=== PATIENT | male | born 1985 | race Caucasian/White ===

== ENCOUNTER 2018-06-05 01:59 | Emergency (ER) | payer BC ==
[2018-06-05] MEDS ORDERED: Pantoprazole 40 MG Vial IVPUSH ONE (02:10)
[2018-06-05] MEDS ORDERED: Sodium Chloride 0.9% 1,000 ML IV ONE (02:10)
[2018-06-05] MEDS ORDERED: Ondansetron 4 MG/2 ML SDV IVPUSH ONE (02:10)
--- NOTE | 2018-06-05 02:11 | EDM.PDOC ---
ED HPI GENERAL MEDICAL PROBLEM - General Chief Complaint: Abdominal Pain Stated Complaint: ABDOMINAL PAIN- GERDS AND IBS Time Seen by Provider: 06/05/18 02:11 Source of Information: Reports: Patient - History of Present Illness INITIAL COMMENTS - FREE TEXT/NARRATIVE: HISTORY AND PHYSICAL: History of present illness: [Patient with history of irritable bowel syndrome as well as GERD presents with vague abdominal pain nonfocal no fever nausea vomiting chills sweats no chest pain shortness breath headache dizziness palpitation no bowel or urine symptoms Patient did have some nausea intermittently throughout the day did provide a Bentyl which has relieved symptoms ] Review of systems: As per history of present illness and below otherwise all systems reviewed and negative. Past medical history: As per history of present illness and as reviewed below otherwise noncontributory. Surgical history: As per history of present illness and as reviewed below otherwise noncontributory. Social history: No reported history of drug or alcohol abuse. Family history: As per history of present illness and as reviewed below otherwise noncontributory. Physical exam: HEENT: Atraumatic, normocephalic, pupils reactive, negative for conjunctival pallor or scleral icterus, mucous membranes moist, throat clear, neck supple, nontender, trachea midline. Lungs: Clear to auscultation, breath sounds equal bilaterally, chest nontender. Heart: S1S2, regular, negative for clicks, rubs, or JVD. Abdomen: Soft, nondistended, nontender. Negative for masses or hepatosplenomegaly. Negative for costovertebral tenderness. Pelvis: Stable nontender. Genitourinary: Deferred. Rectal: Deferred. Extremities: Atraumatic, negative for cords or calf pain. Neurovascular unremarkable. Neuro: Awake, alert, oriented. Cranial nerves II through XII unremarkable. Cerebellum unremarkable. Motor and sensory unremarkable throughout. Exam nonfocal. Diagnostics: [EBC CMP lipase UA Flat and upright plain films ] Therapeutics: [Eater normal saline bolus Zofran 8 mg IV Proton X 80 mg IV Bentyl 10 mg by mouth ] Impression: [ abdominal pain -resolved] Definitive disposition and diagnosis as appropriate pending reevaluation and review of above. abdominal Pain Score (Numeric/FACES): 9 - Related Data Allergies Allergy/AdvReac Type Severity Reaction Status Date / Time No Known Allergies Allergy Verified 06/05/18 02:12 Home Meds: Home Meds Cyclobenzaprine [Flexeril] 5 mg PO ASDIRECTED PRN 06/05/18 [History] FLUoxetine [PROzac] 10 mg PO DAILY 06/05/18 [History] Gabapentin [Neurontin] 100 mg PO TID 06/05/18 [History] ED ROS GENERAL - Review of Systems Review Of Systems: See Below ED EXAM, GENERAL - Physical Exam Exam: See Below Course - Vital Signs Last Recorded V/S: Last Vital Signs Temp 97.5 F 06/05/18 02:08 Pulse 58 L 06/05/18 02:08 Resp 18 06/05/18 02:08 BP 119/72 06/05/18 02:08 Pulse Ox 95 06/05/18 02:08 - Orders/Labs/Meds Orders: Active Orders 24 hr Category Date Time Status Abdomen 2V AP Flat Upright [CR] Stat Exams 06/05/18 02:50 Taken UA W/MICROSCOPIC [URIN] Stat Lab 06/05/18 02:10 Ordered Labs: Laboratory Tests 06/05/18 06/05/18 06/05/18 Range/Units 02:10 02:25 02:25 WBC 8.74 (4.0-11.0) K/uL RBC 4.93 (4.50-5.90) M/uL Hgb 14.8 (13.0-17.0) g/dL Hct 42.1 (38.0-50.0) % MCV 85.4 (80.0-98.0) fL MCH 30.0 (27.0-32.0) pg MCHC 35.2 (31.0-37.0) g/dL RDW Std Deviation 39.2 (28.0-62.0) fl RDW Coeff of Komal 13 (11.0-15.0) % Plt Count 212 (150-400) K/uL MPV 8.80 (7.40-12.00) fL Neut % (Auto) 55.2 (48.0-80.0) % Lymph % (Auto) 35.7 (16.0-40.0) % [place] % (Auto) 7.0 (0.0-15.0) % Eos % (Auto) 1.6 (0.0-7.0) % Baso % (Auto) 0.5 (0.0-1.5) % Neut # (Auto) 4.8 (1.4-5.7) K/uL Lymph # (Auto) 3.1 H (0.6-2.4) K/uL [place] # (Auto) 0.6 (0.0-0.8) K/uL Eos # (Auto) 0.1 (0.0-0.7) K/uL Baso # (Auto) 0.0 (0.0-0.1) K/uL Nucleated RBC % 0.0 /100WBC Nucleated RBCs # 0 K/uL Sodium 137 (136-148) mmol/L Potassium 4.0 (3.5-5.1) mmol/L Chloride 103 (98-107) mmol/L Carbon Dioxide 28.0 (21.0-32.0) mmol/L BUN 13 (7.0-18.0) mg/dL Creatinine 1.1 (0.8-1.3) mg/dL Est Cr Clr Drug Dosing 99.83 mL/min Estimated GFR (MDRD) > 60.0 ml/min Glucose 107 H (74-106) mg/dL Calcium 8.9 (8.5-10.1) mg/dL Total Bilirubin 0.4 (0.2-1.0) mg/dL AST 21 (15-37) IU/L ALT 34 (14-63) IU/L Alkaline Phosphatase 57 (46-116) U/L Total Protein 7.0 (6.4-8.2) g/dL Albumin 3.9 (3.4-5.0) g/dL Globulin 3.1 (2.0-3.5) g/dL Albumin/Globulin Ratio 1.3 (1.3-2.8) Lipase 147 (73-393) U/L Urine Color YELLOW Urine Appearance CLEAR Urine pH 6.0 (5.0-8.0) Ur Specific [place] 1.020 (1.001-1.035) Urine Protein NEGATIVE (NEGATIVE) mg/dL Urine Glucose (UA) NEGATIVE (NEGATIVE) mg/dL Urine Ketones NEGATIVE (NEGATIVE) mg/dL Urine Occult Blood NEGATIVE (NEGATIVE) Urine Nitrite NEGATIVE (NEGATIVE) Urine Bilirubin NEGATIVE (NEGATIVE) Urine Urobilinogen 0.2 (<2.0) EU/dL Ur Leukocyte Esterase NEGATIVE (NEGATIVE) Urine RBC 0-1 (0-2/HPF) Urine WBC 0-1 (0-5/HPF) Ur Epithelial Cells RARE (NONE-FEW) Urine Bacteria FEW (NEGATIVE) Meds: Medications Discontinued Medications Generic Name Dose Route Start Last Admin Trade Name Evon PRN Reason Stop Dose Admin Dicyclomine HCl 10 mg 06/05/18 02:59 06/05/18 03:13 Bentyl PO 06/05/18 03:00 10 mg ONETIME ONE Administration Sodium Chloride 1,000 mls @ 999 mls/hr 06/05/18 02:10 06/05/18 02:26 Normal Saline IV 06/05/18 03:10 999 mls/hr STAT ONE Administration Ondansetron HCl 8 mg 06/05/18 02:10 06/05/18 02:29 Zofran IVPUSH 06/05/18 02:11 8 mg ONETIME ONE Administration Pantoprazole Sodium 80 mg 06/05/18 02:10 06/05/18 02:32 Protonix Iv IVPUSH 06/05/18 02:11 80 mg .BOLUS ONE Administration Departure - Departure Time of Disposition: 03:52 Disposition: Home, Self-Care 01 Condition: Good Clinical Impression: Abdominal pain - Discharge Information Referrals: PCP,None [Primary Care Provider] - Forms: ED Department Discharge Additional Instructions: Medication as prescribed Return if symptoms persist or worsen Follow-up with primary care in 2 weeks sooner as needed [facility] [address] [place] [address] The following information is given to patients seen in the emergency department who are being discharged to home. This information is to outline your options for follow-up care. We provide all patients seen in our emergency department with a follow-up referral. The need for follow-up, as well as the timing and circumstances, are variable depending upon the specifics of your emergency department visit. If you don't have a primary care physician on staff, we will provide you with a referral. We always advise you to contact your personal physician following an emergency department visit to inform them of the circumstance of the visit and for follow-up with them and/or the need for any referrals to a consulting specialist. The emergency department will also refer you to a specialist when appropriate. This referral assures that you have the opportunity for follow-up care with a specialist. All of these measure are taken in an effort to provide you with optimal care, which includes your follow-up. Under all circumstances we always encourage you to contact your private physician who remains a resource for coordinating your care. When calling for follow-up care, please make the office aware that this follow-up is from your recent emergency room visit. If for any reason you are refused follow-up, please contact the [facility] emergency department at and asked to speak to the emergency department charge nurse. - My Orders Last 24 Hours: My Active Orders 06/05/18 02:10 UA W/MICROSCOPIC [URIN] Stat 06/05/18 02:50 Abdomen 2V AP Flat Upright [CR] Stat - Assessment/Plan Last 24 Hours: My Active Orders 06/05/18 02:10 UA W/MICROSCOPIC [URIN] Stat 06/05/18 02:50 Abdomen 2V AP Flat Upright [CR] Stat
[2018-06-05] MEDS ORDERED: Dicyclomine 10 MG Cap PO ONE (02:59)
[2018-06-05 03:01] LABS: CHLORIDE,CL 103 mmol/L (98-107); SODIUM,NA 137 mmol/L (136-148)
--- NOTE | 2018-06-07 16:49 | CR ---
EXAM DATE: 06/05/18 PATIENT'S AGE: 33 Patient: PARDEEP HUSSEIN Facility: [place], [place] Site . Site : 1985 Study: XRay Abdomen [id number]/11/2018 3:28:39 AM Ordering Physician: Andrei Wilcox Final Report: Indication: Abdominal pain Technique: Three views of the abdomen. Comparison: None Findings/Impression: : A nonspecific bowel gas pattern with colonic gas and stool and few mildly dilated air-filled left abdominal small bowel segments. If evolving obstruction is suspected, correlate with serial KUBs. No suspicious calcifications seen. No definite evidence of gross free air. Unremarkable osseous structures. Dictated by Deshawn Austin MD @ 06/05/2018 4:26:33 AM Dictated by: Deshawn Austin MD @ 06/05/2018 04:26:37 (Electronic Signature) Report Signed by Proxy. [email or web address]
== END 2018-06-05 04:13 | disposition home or self-care (01) ==
LOC: MW.ED 01:59
DX: R10.9 Unspecified abdominal pain (principal); Z79.899 Other long term (current) drug therapy
CPT/HCPCS: 36415; 74019; 80053; 81001; 83690; 85025; 96361; 96374; 96375; 99284; A9270; C9113; J2405; J7040; 99283